=== PATIENT | male | born 1980 | race Caucasian/White ===

== ENCOUNTER 2019-06-23 20:30 | Outpatient (CLI) | payer OTHER | END 2019-06-23 20:31 | disposition home or self-care (01) | LOC: SLEEPLAB 20:30 | PROVIDERS: ATTEND Family Medicine | DX: G47.33 Obstructive sleep apnea (adult) (pediatric) (principal); R53.83 Other fatigue; R51 Headache; R06.83 Snoring; F41.8 Other specified anxiety disorders; I10 Essential (primary) hypertension | CPT/HCPCS: 95811 ==

== ENCOUNTER 2023-01-06 14:47 | Emergency (ER) | payer OTHER, SELFPAY ==
[2023-01-06] MEDS ORDERED: Ketorolac Tromethamine 30 MG/ML VIAL ONE (15:24)
== END 2023-01-06 17:42 | disposition home or self-care (01) ==
LOC: ERS 14:47
DX: M62.838 Other muscle spasm (principal)
CPT/HCPCS: 96372; J1885